=== PATIENT | male | born 1995 | race Asian ===

== ENCOUNTER 2023-11-04 11:30 | Emergency (ER) | payer SELFPAY ==
[2023-11-04 11:34] VITALS: BP 143/94
--- NOTE | 2023-11-04 12:21 | ED.GENMED ---
History of Present Illness
<RICKEY Herndon - Last Filed: 11/04/23 20:30>
General
Chief Complaint: Headache
Source: patient
Exam Limitations: none
Time Seen by Provider: 11/04/23 12:08
Nursing documentation reviewed up to this point in time: agreed with
Travel History
Have you had any contact with someone who has COVID-19?: No
Do you have any symptoms of coronavirus? Fever > 100 degrees, chills, cough, shortness of breath, sore throat, loss of taste or smell, muscle aches, or headache?: No
History of Present Illness
History of Present Illness:
28-year-old male presents to the ER for evaluation. Patient reports he started with a headache on Wednesday, 5 days ago and then yesterday noticed that his left eye seemed a little droopy along with the left side of his mouth. He also noticed that
the left side of his face seemed numb and tingling .he reports the headache is on the left side of his head. It is relieved with Advil/Motrin but then does come back after couple hours. He denies any upper or lower extremity weakness numbness
tingling. He denies any speech difficulty. He denies any recent fever or chills. Denies any joint pain rash.
He reports he has something ' with facial nerve issues' in the past but was not discomfort the time and does not know exact diagnosis.
Review of Systems
<RICKEY Herndon - Last Filed: 11/04/23 20:30>
Review of Systems
Allergies reviewed?: Yes
All Other Systems: ROS reviewed and negative except as documented in HPI and ROS
Constitutional: Reports no symptoms; Denies fever, fatigue or chills
EENT: Reports no symptoms
Respiratory: Reports no symptoms
ABD/GI: Reports no symptoms
: Reports no symptoms
Musculoskeletal: Reports no symptoms
Skin: Reports no symptoms; Denies rash
Neurological: Reports headache and numbness (droopy left eye/left mouth )
Hematologic/Lymphatic: Reports no symptoms
Psychiatric: Reports no symptoms
Phy Exam
<RICKEY Herndon - Last Filed: 11/04/23 20:30>
General Physical Exam
General Presentation: no apparent distress
General age: appears stated age
General Skin: warm and dry
General Habitus: normal
General Mental: alert
General Hydration: appears well hydrated
Eye Exam
Eye Exam: PERRL and EOMI
Eye Exam General: PERRL: bilateral and EOM intact: bilateral
Pupil Exam: Bilateral: round and reactive
Neurological Exam
Neurological Exam: alert, oriented x3 and other (Patient left eyelid appears slightly droopy than the right eyelid forehead is not spared )
[place] Coma Scale
Eye Opening: Spontaneous
Verbal Response: Oriented
Motor Response: Obeys Commands
GCS Total Score: 15
Cerebellar
Cerebellar Function: normal finger to nose
Musculoskeletal Exam
Musculoskeletal Exam: full ROM
Skin Exam
Skin Exam: normal color and warm/dry
Psychiatric Exam
Psychiatric Exam: normal mood/affect
Course
<RICKEY Herndon - Last Filed: 11/04/23 20:30>
Orders/Labs/Results
Orders:
Orders
11/04/23 12:30
Vital Signs- Treatment ONCE
Frequency: Once
11/04/23 12:42
Lyme Progressive Urgent
Vital Signs
Initial and Last Documented VS:
Initial Vital Signs
Temp Pulse Resp BP Pulse Ox
99.2 F 105 18 143/94 96
11/04/23 11:34 11/04/23 11:34 11/04/23 11:34 11/04/23 11:34 11/04/23 11:34
Last Documented Vital Signs
Temp Pulse Resp BP Pulse Ox
99.2 F 107 18 142/78 98
11/04/23 11:34 11/04/23 12:48 11/04/23 11:34 11/04/23 12:48 11/04/23 12:48
Diagnostic Cardiac Sonographer consulted with Physician
Diagnostic Cardiac Sonographer consulted with physician?: Yes
Name of Physician Consulted: Ching
<Carlos Flower DO - Last Filed: 11/04/23 12:33>
Orders/Labs/Results
Orders:
Orders
11/04/23 12:30
Vital Signs- Treatment ONCE
Frequency: Once
11/04/23 12:42
Lyme Progressive Urgent
Vital Signs
Initial and Last Documented VS:
Initial Vital Signs
Temp Pulse Resp BP Pulse Ox
99.2 F 105 18 143/94 96
11/04/23 11:34 11/04/23 11:34 11/04/23 11:34 11/04/23 11:34 11/04/23 11:34
Last Documented Vital Signs
Temp Pulse Resp BP Pulse Ox
99.2 F 107 18 142/78 98
11/04/23 11:34 11/04/23 12:48 11/04/23 11:34 11/04/23 12:48 11/04/23 12:48
<RICKEY Herndon - Last Filed: 11/04/23 20:30>
MDM/Problems Addressed
Differential Diagnosis Includes:
Not limited to Dean's palsy less likely CVA
MDM/Problems Addressed:
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 Patient no acute distress. Patient evaluated by ED physician. Patient was started on steroids, valacyclovir Lyme screening test ordered. Patient was also prescribed lubricating eyedrops discussed close
outpatient follow-up with eye doctor. Patient in no acute distress looks well
<RICKEY Herndon - Last Filed: 11/04/23 20:30>
*Critical Care Note
Total Time (30-74mins, 75-104mins- exclusive of procedures): Not Applicable
ED Attending Note
<RICKEY Herndon - Last Filed: 11/04/23 20:30>
-
Portions of this chart may have been created with voice recognition software.� Occasional wrong word or��sound alike� substitutions may have occurred due to the inherent limitations of voice recognition software.
<Carlos Flower DO - Last Filed: 11/04/23 12:33>
ED Attending Note
Patient seen and examined by attending physician: Yes
I performed the substantive portion of visit, reviewed & personally made and approve the management plan that is documented in note by myself or KALIE.: Yes
ED Attending Note:
Seen with [facility] examined independently looks like Dean's palsy. Assessment plan
Discharge Plan
Departure
Patient Disposition: Home (Routine Discharge)
Date of Disposition: 11/04/23
Time of Disposition: 12:30
Patient with high blood pressure during this ER visit?: Yes
Discharge Problem:
Dean's palsy
Instructions: Dean's Palsy (DC), BLOOD PRESSURE
Prescriptions:
New
prednisone 50 mg tablet
50 mg PO DAILY Qty: 5 0RF
valacyclovir [Valtrex] 1 gram tablet
1,000 mg PO TID Qty: 21 0RF
Refresh Lacri-Lube 56.8-42.5 % ointment
0.25 inch LEFT EYE Q4H PRN (Reason: dry eye(s)) Qty: 3.5 0RF
Rx Instructions:
Apply ointment to left eye every 4 hours or as needed to prevent dry eye
Refresh Lacri-Lube 56.8-42.5 % ointment
1 applic LEFT EYE DAILY PRN (Reason: dry eye(s)) Qty: 3.5 0RF
Rx Instructions:
Apply as needed to left eye
Referrals:
NONE,* [Family Provider] -
Activity Restrictions/Additional Instructions:
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 Lyme test was done here by blood work. Please have your family doctor follow-up with this. You will also be notified if this is positive.
a prescription for steroids, antiviral medication as well as lubricating eye ointment was sent to your pharmacy.
Steroids are to be taken once daily for the next 5 days. Antiviral medication is to be taken 3 times a day for the next week and please use lubricating eye ointment every 4 hours or as needed to prevent dry eye. Return if any worsening of symptoms
Interventions
Interventions:
*Risk Screen - Suicide Last Done: 11/04/23 11:37
*General Assessment Last Done: 11/04/23 11:37
*Neglect/Abuse Screening Last Done: 11/04/23 11:37
*Nursing Disposition Last Done: 11/04/23 13:04
ED- Neurological Assessment Last Done: 11/04/23 12:06
Discharge Date and Time
Discharge Date/Time: 11/04/23 13:04
[2023-11-04 12:30] VITALS: BMI 30.4
[2023-11-04 12:48] VITALS: BP 142/78
[2023-11-08 17:02] LABS: Lyme Antibody Screen, EIA Negative (Negative)
== END 2023-11-04 13:04 | disposition home or self-care (01) ==
LOC: EMR 11:30
PROVIDERS: Nurse Practitioner; EMERGENCY PHYSICIAN Emergency Medicine
DX: G51.0 Bell's palsy (principal); R03.0 Elevated blood-pressure reading, without diagnosis of hypertension
CPT/HCPCS: 99283; 86618